=== PATIENT | female | born 1925 | race Caucasian/White ===

== ENCOUNTER → 2017-04-25 | Outpatient (CLI) | payer MEDICARE, OTHER ==
[~2017-04-25] MED LIST: NORVASC5 MG PO; SYNTHROID112 MCG PO
== END | disposition home or self-care (01) ==
LOC: RAD.S 04-21 12:02
DX: I65.23 Occlusion and stenosis of bilateral carotid arteries (principal); R26.2 Difficulty in walking, not elsewhere classified; I10 Essential (primary) hypertension; R41.3 Other amnesia; G31.9 Degenerative disease of nervous system, unspecified